=== PATIENT | female | born 1945 | race Caucasian/White ===

== ENCOUNTER 2021-12-01 11:29 | Emergency (ER) | payer OTHER ==
[~2021-12-01] VITALS: Ht 157.5 cm; Wt 65.8 kg
[~2021-12-01 11:29] MED LIST: ANTIVERT12.5 MG; ENALAPRIL HCTZ; GLUCOVANCE 5/501 TAB
[2021-12-01] MEDS ORDERED: GLUMETZA500 MG PO (13:59)
[2021-12-01] MEDS ORDERED: PROTONIX40 MG PO (13:59)
[2021-12-01] MEDS ORDERED: GLIMEPIRIDE2 MG (14:00)
[2021-12-01] MEDS ORDERED: CRESTOR5 MG PO (14:00)
[2021-12-01] MEDS ORDERED: VITAMIN C100 MG (14:00)
[2021-12-01] MEDS ORDERED: ECHINACEA400 MG PO (14:01)
[2021-12-01] MEDS ORDERED: NOXIFOL-D32500 UNIT PO (14:01)
[2021-12-01] MEDS ORDERED: VITAMIN B122500 MCG (14:01)
[2021-12-01] MEDS ORDERED: ARMOUR THYROID15 MG PO (14:02)
== END 2021-12-01 16:03 | disposition home or self-care (01) ==
LOC: ER 11:29
DX: E11.65 Type 2 diabetes mellitus with hyperglycemia (principal); Z79.84 Long term (current) use of oral hypoglycemic drugs; R07.89 Other chest pain; I10 Essential (primary) hypertension; Z88.6 Allergy status to analgesic agent